=== PATIENT | female | born 1965 | race Caucasian/White ===

== ENCOUNTER → 2017-01-27 | Outpatient (CLI) | payer MEDICARE, MEDICAID | LOC: WI 06:52 | PROVIDERS: ATTEND Internal Medicine | DX: Z12.31 Encounter for screening mammogram for malignant neoplasm of breast (principal) | CPT/HCPCS: 77067; G0202 ==

== ENCOUNTER 2017-05-10 16:26 | Inpatient (IN) | payer MEDICARE, MEDICAID ==
[2017-05-10] MEDS ORDERED: DEXTROSE 50%-WATER SYRINGE 12.5 GM/25 ML DOSE IV PRN (17:20)
[2017-05-10] MEDS ORDERED: DEXTROSE 40% GEL 15 GM TUBE X 2 PO PRN (17:20)
[2017-05-10] MEDS ORDERED: DEXTROSE 40% GEL 15 GM TUBE PO PRN ×3 (17:20→21:14)
[2017-05-10] MEDS ORDERED: INSULIN LISPRO 100 UNIT/ML 3 ML VIAL SUBCUT PRN ×2 (17:20→21:14)
[2017-05-10] MEDS ORDERED: GLUCAGON,HUMAN RECOMB 1 MG INJ IM PRN ×2 (17:20→21:14)
[2017-05-10] MEDS ORDERED: DEXTROSE 50%-WATER SYRINGE 25 GM/50 ML DOSE IV PRN (17:20)
[2017-05-10] MEDS ORDERED: ENOXAPARIN SODIUM INJ 40 MG/0.4 ML DISP.SYRIN SUBCUT ONE (17:30)
[2017-05-10 17:32] LABS: ABSOLUTE BASOPHILS # (AUTO) 0.1 10^3/uL (0.0-0.2); ABSOLUTE EOSINOPHILS # (AUTO) 2.1 10^3/uL (0.0-0.6); ABSOLUTE LYMPHOCYTES (AUTO) 1.2 10^3/uL (0.5-4.7); ABSOLUTE MONOCYTES (AUTO) 0.7 10^3/uL (0.1-1.4); ABSOLUTE NEUT (AUTO) 7.1 10^3/uL (1.7-8.2); BASOPHILS % (AUTO) 0.7 % (0-2); EOSINOPHILS % (AUTO) 18.6 % (0-6); HEMATOCRIT 39.4 % (36.0-47.0); HEMOGLOBIN 13.1 g/dL (12.0-15.5); HGB HCT DIFFERENCE -0.1; LYMPHOCYTES % (AUTO) 10.8 % (13-45); MEAN CORPUSCULAR HEMOGLOBIN 29.2 pg (27.0-33.4); MEAN CORPUSCULAR HGB CONC 33.1 g/dL (32.0-36.0); MEAN CORPUSCULAR VOLUME 88 fl (80-97); MONOCYTES % (AUTO) 6.2 % (3-13); RED BLOOD COUNT 4.48 10^6/uL (3.72-5.28); RED CELL DISTRIBUTION WIDTH 15.7 % (11.5-14.0); SEGMENTED NEUTROPHILS % (AUTO) 63.7 % (42-78); WHITE BLOOD COUNT 11.2 10^3/uL (4.0-10.5)
[2017-05-10 17:58] LABS: ALANINE AMINOTRANSFERASE 36 U/L (9-52); ALBUMIN 3.8 g/dL (3.5-5.0); ALKALINE PHOSPHATASE 146 U/L (38-126); ANION GAP 11 (5-19); ASPARTATE AMINO TRANSFERASE 20 U/L (14-36); BILIRUBIN,DIRECT 0.3 mg/dL (0.0-0.4); BILIRUBIN,TOTAL 0.5 mg/dL (0.2-1.3); BLOOD UREA NITROGEN 17 mg/dL (7-20); CARBON DIOXIDE 25 mmol/L (22-30); CHLORIDE 103 mmol/L (98-107); CREATINE KINASE 61 U/L (30-135); CREATININE RESULT 0.63 mg/dL (0.52-1.25); GLUCOSE 92 mg/dL (75-110); POTASSIUM 4.4 mmol/L (3.6-5.0); SODIUM 138.9 mmol/L (137-145); TOTAL PROTEIN 6.9 g/dL (6.3-8.2)
[2017-05-10 18:10] LABS: CREATINE KINASE MB 3.38 ng/mL (<4.55)
[2017-05-10 18:11] LABS: TROPONIN I < 0.012 ng/mL
--- NOTE | 2017-05-10 18:15 | RADIOLOGY REPORT (SQ) ---
EXAM DESCRIPTION: CHEST SINGLE VIEW COMPLETED DATE/TIME: 05/10/2017 6:04 pm REASON FOR STUDY: chest pain COMPARISON: None. EXAM PARAMETERS: NUMBER OF VIEWS: One view. TECHNIQUE: Single frontal radiographic view of the chest acquired. RADIATION DOSE: NA LIMITATIONS: None. FINDINGS: LUNGS AND PLEURA: No acute opacities, masses or pneumothorax. No pleural effusion. MEDIASTINUM AND HILAR STRUCTURES: No masses. Contour normal. HEART AND VASCULAR STRUCTURES: Heart normal in size. Normal vasculature. BONES: No acute findings. HARDWARE: None in the chest. OTHER: No other significant finding. IMPRESSION: NO ACUTE RADIOGRAPHIC FINDING IN THE CHEST. TECHNICAL DOCUMENTATION: JOB ID: [id number]
[2017-05-10 18:48] LABS: ARTERIAL BLOOD BASE EXCESS 1.8 mmol/L; ARTERIAL BLOOD O2 SATURATION 61.9 % (94-98)
[2017-05-10 21:04] LABS: APPEARANCE,URINE SLIGHTLY-CLOUDY; BILIRUBIN,URINE NEGATIVE (NEGATIVE); GLUCOSE, URINE NEGATIVE (NEGATIVE); KETONES,URINE NEGATIVE (NEGATIVE); LEUKOCYTE ESTERASE,URINE LARGE (NEGATIVE); NITRITE,URINE NEGATIVE (NEGATIVE); PROTEIN,URINE NEGATIVE (NEGATIVE); URINE SPECIFIC GRAVITY 1.027; UROBILINOGEN,URINE NEGATIVE mg/dL (<2.0)
[2017-05-10] MEDS: IPRATROPIUM/ALBUTEROL 0.5-2.5 MG/3 ML AMPUL NEB SCH (21:05)
[2017-05-10] MEDS ORDERED: DEXTROSE 50%-WATER 25 GM/50 ML DISP.SYRIN IV PRN ×2 (21:14)
[2017-05-10] MEDS: LEVOFLOXACIN 750 MG/D5W RTU 750 MG/150 ML RTUPB IV SCH (23:10)
[2017-05-11 01:15] LABS: ARTERIAL BLOOD BASE EXCESS 2.8 mmol/L; ARTERIAL BLOOD O2 SATURATION 95.9 % (94-98)
[2017-05-11 01:50] LABS: CREATINE KINASE MB 2.68 ng/mL (<4.55)
[2017-05-11 01:57] LABS: TROPONIN I < 0.012 ng/mL
[2017-05-11] MEDS: IPRATROPIUM/ALBUTEROL 0.5-2.5 MG/3 ML AMPUL NEB SCH ×4 (02:33→20:47)
--- NOTE | 2017-05-11 08:47 | RADIOLOGY REPORT (SQ) ---
EXAM DESCRIPTION: CT CHEST WITHOUT COMPLETED DATE/TIME: 05/11/2017 7:59 am REASON FOR STUDY: copd COMPARISON: 11/29/2007, 12/01/2010, 05/15/2013 TECHNIQUE: CT scan performed of the chest without intravenous contrast. Images reviewed with lung, soft tissue and bone windows. Reconstructed coronal and sagittal MPR images reviewed. All images st ored on PACS. All CT scanners at this facility use dose modulation, iterative reconstruction, and/or weight based d osing when appropriate to reduce radiation dose to as low as reasonably achievable (ALARA). [facility]: Dose Right [facility]: CareDose [facility]: Dose Right [facility]: Teradose 4D [facility]: PowerPot RADIATION DOSE: Up-to-date CT equipment and radiation dose reduction techniques were employed. CTDIv ol: 14.3 mGy. DLP: 564 mGy-cm. mGy. LIMITATIONS: No technical limitations. FINDINGS: LUNGS AND PLEURA: No pulmonary nodules. No pleural effusion. No acute infiltrates. There is minimal scarring in the medial edge of the right middle lobe and lingula, similar compared t o studies dating back to 2007. No pneumothorax HILAR AND MEDIASTINAL STRUCTURES: No identified masses or abnormal nodes. No obvious aneurysm. HEART AND VASCULAR STRUCTURES: No aneurysm. No pericardial effusion. Very heavy [place] coronary art laya calcifications UPPER ABDOMEN: Jimena along the greater curvature of the stomach from gastric sleeve procedure. THYROID AND OTHER SOFT TISSUES: No masses. No adenopathy. BONES: No significant finding. HARDWARE: None in the chest. OTHER: No other significant findings. IMPRESSION: Calcified coronary arteries. No lung parenchymal infiltrates. No worrisome nodules. TECHNICAL DOCUMENTATION: JOB ID: [id number] Quality ID # [id number]: Final reports with documentation of one or more dose reduction techniques (e.g., Au tomated exposure control, adjustment of the mA and/or kV according to patient size, use of iterative reconstruction technique) 2010 [email or web address]- All Rights Reserved
[2017-05-11 10:15] LABS: CREATINE KINASE MB 2.57 ng/mL (<4.55)
[2017-05-11 10:20] LABS: TROPONIN I < 0.012 ng/mL
[2017-05-11] MEDS: ENOXAPARIN SODIUM INJ 40 MG/0.4 ML DISP.SYRIN SUBCUT SCH (10:49)
--- NOTE | 2017-05-11 11:51 | EKG REPORT ---
SEVERITY:- BORDERLINE ECG - SINUS RHYTHM BORDERLINE T ABNORMALITIES, ANTERIOR LEADS : Confirmed by: Paty Guevara 11-May-2017 11:50:40
--- NOTE | 2017-05-11 14:53 | PDOC H&P ---
History of Present Illness Admission Date/PCP: 05/10/17 16:26 CHEO PETERSEN MD History of Present Illness: STAR ROSAS is a 51 year old female, she has a history of chronic obstructive pulmonary disease, ischemic heart disease, old myocardial. infarction, she came to the office for the evaluation of respiratory symptoms, cough, shortness of breath and wheezing. The oxygen saturation on pulse oximetry on FiO2 of 3 L was 94%. Patient was admitted directly from the office into the hospital because of concern for pneumonia, acute respiratory failure due to COPD exacerbation. The arterial blood gas that was done on FiO2 of 28% showed pH 7.37, PCO2 33.7 PCO2 50.8 bicarbonate 29, this is consistent with a mixed acid-base disorder. The initial chest x-ray that was done did not show any acute infiltrate to suggest pneumonia. She has a history of ischemic cardiomyopathy, she also complained of a chest pain, she described the pain as a pressure sensation. The chest pain is not provoked by exertion and is not relieved by rest Past Medical History Cardiac Medical History: Reports: Coronary Artery Disease, Myocardial Infarction - x2, Hyperlipidema, Hypertension Pulmonary Medical History: Reports: Asthma, Chronic Obstructive Pulmonary Disease (COPD) Endocrine Medical History: Reports: Diabetes Mellitus Type 2 Psychiatric Medical History: Reports: Depression Past Surgical History Past Surgical History: Reports: Cardiac Catheterization, Orthopedic Surgery - right knee, Tubal Ligation Social History Smoking Status: Former Smoker Number of Years Smokin Last Time Smoked: 2009 Frequency of Alcohol Use: None Hx Recreational Drug Use: No Drugs: None Hx Prescription Drug Abuse: No Family History Family History: Reviewed & Not Pertinent Parental Family History Reviewed: Yes Children Family History Reviewed: Yes Sibling(s) Family History Reviewed.: Yes Medication/Allergy Home Medications: Albuterol Sulfate [Proair HFA] 1 puff PO DAILY 08/17/13 Budesonide/Formoterol Fumarate [Symbicort HFA 160-4.5 mcg Inhaler 6 gm] 1 - 2 puff PO PRN PRN 08/17/13 Cyclobenzaprine HCl 10 mg PO Q8H 08/17/13 Diltiazem HCl [Cardizem Cd 120 mg Capsule] 120 mg PO DAILY 08/17/13 Duloxetine HCl [Cymbalta] 60 mg PO DAILY 08/17/13 Hydrocodone Bit/Acetaminophen [Hydrocodon-Acetaminophen 5-500] 1 tab PO PRN PRN 08/17/13 Isosorbide Mononitrate [Isosorbide Mononitrate ER] 30 mg PO DAILY 08/17/13 Levalbuterol Tartrate [Xopenex Hfa] 15 gm IH Q4HP PRN #0 hfa.aer.ad 08/17/13 Levofloxacin [Levaquin 500 mg Tablet] 500 mg PO DAILY #7 tablet 08/17/13 Losartan Potassium 25 mg PO DAILY 08/17/13 Metoprolol Tartrate [Lopressor 100 mg Tablet] 100 mg PO BID 08/17/13 Pravastatin Sodium [Pravachol] 40 mg PO DAILY 08/17/13 Prednisone [Deltasone 20 mg Tablet] 60 mg PO DAILY #12 tablet 08/17/13 Ranolazine [Ranexa] 500 mg PO BID 08/17/13 Tiotropium [place] [Spiriva Handihaler 18 mcg/dose (30 Dose)] 18 mcg PO DAILY Zolpidem Tartrate 10 mg PO QHS 08/17/13 Allergies/Adverse Reactions: Penicillins Allergy (Verified 08/17/13 21:34) Review of Systems Constitutional: PRESENT: fatigue Eyes: ABSENT: visual disturbances Ears: ABSENT: hearing changes Cardiovascular: PRESENT: chest pain, dyspnea on exertion Respiratory: PRESENT: cough, dyspnea Gastrointestinal: ABSENT: abdominal pain, constipation, diarrhea, hematemesis, hematochezia, nausea, vomiting Genitourinary: ABSENT: dysuria, hematuria Musculoskeletal: ABSENT: joint swelling Integumentary: ABSENT: rash, wounds Neurological: ABSENT: abnormal gait, abnormal speech, confusion, dizziness, focal weakness, syncope Psychiatric: ABSENT: anxiety, depression, homidical ideation, suicidal ideation Endocrine: ABSENT: cold intolerance, heat intolerance, menstrual abnormalities, polydipsia, polyuria Hematologic/Lymphatic: ABSENT: easy bleeding, easy bruising, lymphadenopathy Physical Exam Vital Signs: Temp Pulse Resp BP Pulse Ox 97.8 F 105 H 18 108/77 96 05/11/17 11:36 05/11/17 13:55 05/11/17 13:55 05/11/17 11:36 05/11/17 13:55 Intake & Output 05/10/17 05/11/17 05/12/17 06:59 06:59 06:59 Intake Total 150 300 Output Total 300 Balance 150 0 Weight 99.2 kg 99.2 kg General appearance: PRESENT: mild distress Head exam: PRESENT: atraumatic, normocephalic Eye exam: PRESENT: conjunctiva pink, EOMI, PERRLA Ear exam: PRESENT: normal external ear exam Mouth exam: PRESENT: moist, tongue midline Neck exam: PRESENT: full ROM Respiratory exam: PRESENT: wheezes Cardiovascular exam: PRESENT: RRR, +S1, +S2 Pulses: PRESENT: normal dorsalis pedis pul, +2 pedal pulses bilateral Vascular exam: PRESENT: normal capillary refill GI/Abdominal exam: PRESENT: normal bowel sounds, soft Rectal exam: PRESENT: deferred Neurological exam: PRESENT: alert, awake, oriented to person, oriented to place , oriented to time, oriented to situation, CN II-XII grossly intact Psychiatric exam: PRESENT: appropriate affect, normal mood Skin exam: PRESENT: dry, intact, warm Results Laboratory Results: 05/10/17 17:25 05/10/17 17:25 05/10/17 05/10/17 05/10/17 17:25 17:25 18:35 WBC 11.2 H RBC 4.48 Hgb 13.1 Hct 39.4 MCV 88 MCH 29.2 MCHC 33.1 RDW 15.7 H Plt Count 261 Seg Neutrophils % 63.7 Lymphocytes % 10.8 L Monocytes % 6.2 Eosinophils % 18.6 H Basophils % 0.7 Absolute Neutrophils 7.1 Absolute Lymphocytes 1.2 Absolute Monocytes 0.7 Absolute Eosinophils 2.1 H Absolute Basophils 0.1 Carbonic Acid 1.77 H HCO3/H2CO3 Ratio 16:1 ABG pH 7.32 L ABG pCO2 58.9 H ABG pO2 35.6 L* ABG HCO3 29.3 H ABG O2 Saturation 61.9 L ABG Base Excess 1.8 FiO2 28% Sodium 138.9 Potassium 4.4 Chloride 103 Carbon Dioxide 25 Anion Gap 11 BUN 17 Creatinine 0.63 Est GFR ( Amer) > 60 Est GFR (Non-Af Amer) > 60 Glucose 92 Calcium 9.0 Total Bilirubin 0.5 AST 20 ALT 36 Alkaline Phosphatase 146 H Total Protein 6.9 Albumin 3.8 Urine Color Urine Appearance Urine pH Ur Specific [place] Urine Protein Urine Glucose (UA) Urine Ketones Urine Blood Urine Nitrite Ur Leukocyte Esterase Urine WBC (Auto) Urine RBC (Auto) 0805/10/17 05/11/17 20:33 23:48 01:08 WBC RBC Hgb Hct MCV MCH MCHC RDW Plt Count Seg Neutrophils % Lymphocytes % Monocytes % Eosinophils % Basophils % Absolute Neutrophils Absolute Lymphocytes Absolute Monocytes Absolute Eosinophils Absolute Basophils Carbonic Acid Cancelled 1.53 H HCO3/H2CO3 Ratio Cancelled 18:1 ABG pH Cancelled 7.37 ABG pCO2 Cancelled 50.8 H ABG pO2 Cancelled 83.7 ABG HCO3 Cancelled 29.0 H ABG O2 Saturation Cancelled 95.9 ABG Base Excess Cancelled 2.8 FiO2 Cancelled 28% Sodium Potassium Chloride Carbon Dioxide Anion Gap BUN Creatinine Est GFR ( Amer) Est GFR (Non-Af Amer) Glucose Calcium Total Bilirubin AST ALT Alkaline Phosphatase Total Protein Albumin Urine Color YELLOW Urine Appearance SLIGHTLY-CLOUDY Urine pH 5.0 Ur Specific [place] 1.027 Urine Protein NEGATIVE Urine Glucose (UA) NEGATIVE Urine Ketones NEGATIVE Urine Blood NEGATIVE Urine Nitrite NEGATIVE Ur Leukocyte Esterase LARGE H Urine WBC (Auto) 13 Urine RBC (Auto) 4 05/10/17 05/10/17 05/11/17 17:25 17:25 01:10 Creatine Kinase 61 50 CK-MB (CK-2) 3.38 Troponin I < 0.012 05/11/17 05/11/17 05/11/17 01:10 09:31 09:31 Creatine Kinase 49 CK-MB (CK-2) 2.68 2.57 Troponin I < 0.012 < 0.012 Impressions: Chest X-Ray 05/10/17 00:00 IMPRESSION: NO ACUTE RADIOGRAPHIC FINDING IN THE CHEST. Chest CT 05/11/17 00:00 IMPRESSION: Calcified coronary arteries. No lung parenchymal infiltrates. No worrisome nodules. Assessment & Plan - Diagnosis (1) Acute exacerbation of chronic obstructive pulmonary disease (COPD) Is this a current diagnosis for this admission?: Yes Plan: She has acute exacerbation of chronic obstructive lung disease, she is started on intravenous Levaquin, I will hold off Solu-Medrol at this point because she has a history of diabetes mellitus, she has a history of old myocardial infarction, if in 24 hours myocardial infarction is rule out then at that time Solu-Medrol will be initiated. She has complaint of chest pain that is suspicious for ischemic chest pain because is pressure-like in character and Solu-Medrol will be detrimental if used in the setting of acute myocardial infarction (2) Type 2 diabetes mellitus Qualifiers: Diabetes mellitus complication status: with neurologic complications Diabetes mellitus complication detail: with polyneuropathy Diabetes mellitus middle or intermediate school principal insulin use: without middle or intermediate school principal use Qualified Code(s): E11.42 - Type 2 diabetes mellitus with diabetic polyneuropathy Is this a current diagnosis for this admission?: Yes (3) Old myocardial infarction Is this a current diagnosis for this admission?: Yes (4) Chest pain Qualifiers: Chest pain type: unspecified Qualified Code(s): R07.9 - Chest pain, unspecified Is this a current diagnosis for this admission?: Yes
--- NOTE | 2017-05-11 14:59 | PDOC PROGRESS REPORT ---
Subjective Progress Note for:: 05/11/17 Subjective:: Patient was admitted yesterday for evaluation and management of acute COPD exacerbation, yesterday she was not treated with intravenous Solu-Medrol because she also had chest pressure that was suspicious for ischemic chest pain , she has a history of old myocardial infarction, status post insertion of coronary artery stents, 3 sets of cardiac enzymes were negative for acute myocardial infarction, it is not safe to administer intravenous Solu-Medrol in the setting of acute myocardial infarction. Since acute [place] is ruled out one can safely administer intravenous Solu-Medrol. CT chest was done today it was negative for any acute infiltrates suggesting that the symptoms are more likely due to acute COPD exacerbation. Physical Exam Vital Signs: Temp Pulse Resp BP Pulse Ox 97.8 F 105 H 18 108/77 96 05/11/17 11:36 05/11/17 13:55 05/11/17 13:55 05/11/17 11:36 05/11/17 13:55 Intake & Output 05/10/17 05/11/17 05/12/17 06:59 06:59 06:59 Intake Total 150 300 Output Total 300 Balance 150 0 Weight 99.2 kg 99.2 kg General appearance: PRESENT: no acute distress Eye exam: PRESENT: PERRLA Respiratory exam: PRESENT: wheezes Cardiovascular exam: PRESENT: +S1, +S2 GI/Abdominal exam: PRESENT: soft Neurological exam: PRESENT: alert, CN II-XII grossly intact Results Laboratory Results: 05/10/17 17:25 05/10/17 17:25 05/10/17 05/10/17 05/10/17 17:25 17:25 18:35 WBC 11.2 H RBC 4.48 Hgb 13.1 Hct 39.4 MCV 88 MCH 29.2 MCHC 33.1 RDW 15.7 H Plt Count 261 Seg Neutrophils % 63.7 Lymphocytes % 10.8 L Monocytes % 6.2 Eosinophils % 18.6 H Basophils % 0.7 Absolute Neutrophils 7.1 Absolute Lymphocytes 1.2 Absolute Monocytes 0.7 Absolute Eosinophils 2.1 H Absolute Basophils 0.1 Carbonic Acid 1.77 H HCO3/H2CO3 Ratio 16:1 ABG pH 7.32 L ABG pCO2 58.9 H ABG pO2 35.6 L* ABG HCO3 29.3 H ABG O2 Saturation 61.9 L ABG Base Excess 1.8 FiO2 28% Sodium 138.9 Potassium 4.4 Chloride 103 Carbon Dioxide 25 Anion Gap 11 BUN 17 Creatinine 0.63 Est GFR ( Amer) > 60 Est GFR (Non-Af Amer) > 60 Glucose 92 Calcium 9.0 Total Bilirubin 0.5 AST 20 ALT 36 Alkaline Phosphatase 146 H Total Protein 6.9 Albumin 3.8 Urine Color Urine Appearance Urine pH Ur Specific [place] Urine Protein Urine Glucose (UA) Urine Ketones Urine Blood Urine Nitrite Ur Leukocyte Esterase Urine WBC (Auto) Urine RBC (Auto) 05/10/17 05/10/17 05/11/17 20:33 23:48 01:08 WBC RBC Hgb Hct MCV MCH MCHC RDW Plt Count Seg Neutrophils % Lymphocytes % Monocytes % Eosinophils % Basophils % Absolute Neutrophils Absolute Lymphocytes Absolute Monocytes Absolute Eosinophils Absolute Basophils Carbonic Acid Cancelled 1.53 H HCO3/H2CO3 Ratio Cancelled 18:1 ABG pH Cancelled 7.37 ABG pCO2 Cancelled 50.8 H ABG pO2 Cancelled 83.7 ABG HCO3 Cancelled 29.0 H ABG O2 Saturation Cancelled 95.9 ABG Base Excess Cancelled 2.8 FiO2 Cancelled 28% Sodium Potassium Chloride Carbon Dioxide Anion Gap BUN Creatinine Est GFR ( Amer) Est GFR (Non-Af Amer) Glucose Calcium Total Bilirubin AST ALT Alkaline Phosphatase Total Protein Albumin Urine Color YELLOW Urine Appearance SLIGHTLY-CLOUDY Urine pH 5.0 Ur Specific [place] 1.027 Urine Protein NEGATIVE Urine Glucose (UA) NEGATIVE Urine Ketones NEGATIVE Urine Blood NEGATIVE Urine Nitrite NEGATIVE Ur Leukocyte Esterase LARGE H Urine WBC (Auto) 13 Urine RBC (Auto) 4 05/10/17 05/10/17 05/11/17 17:25 17:25 01:10 Creatine Kinase 61 50 CK-MB (CK-2) 3.38 Troponin I < 0.012 05/11/17 05/11/17 05/11/17 01:10 09:31 09:31 Creatine Kinase 49 CK-MB (CK-2) 2.68 2.57 Troponin I < 0.012 < 0.012 Impressions: Chest X-Ray 05/10/17 00:00 IMPRESSION: NO ACUTE RADIOGRAPHIC FINDING IN THE CHEST. Chest CT 05/11/17 00:00 IMPRESSION: Calcified coronary arteries. No lung parenchymal infiltrates. No worrisome nodules. Assessment & Plan - Diagnosis (1) Acute exacerbation of chronic obstructive pulmonary disease (COPD) Is this a current diagnosis for this admission?: Yes (2) Type 2 diabetes mellitus Qualifiers: Diabetes mellitus complication status: with neurologic complications Diabetes mellitus complication detail: with polyneuropathy Diabetes mellitus long-term insulin use: without termite control service representative use Qualified Code(s): E11.42 - Type 2 diabetes mellitus with diabetic polyneuropathy Is this a current diagnosis for this admission?: Yes (3) Old myocardial infarction Is this a current diagnosis for this admission?: Yes (4) Chest pain Qualifiers: Chest pain type: unspecified Qualified Code(s): R07.9 - Chest pain, unspecified Is this a current diagnosis for this admission?: Yes - Plan Summary Plan Summary: She will be started on IV Solu-Medrol, she will continue IV antibiotic and other treatment
[2017-05-11] MEDS ORDERED: METHYLPREDNISOLONE INJ 125 MG/2 ML SDV IV ONE (15:00)
[2017-05-11 17:44] LABS: HEMATOCRIT 40.2 % (36.0-47.0); HEMOGLOBIN 13.3 g/dL (12.0-15.5); HGB HCT DIFFERENCE -0.3; MEAN CORPUSCULAR HEMOGLOBIN 29.6 pg (27.0-33.4); MEAN CORPUSCULAR VOLUME 90 fl (80-97); RED BLOOD COUNT 4.49 10^6/uL (3.72-5.28); WHITE BLOOD COUNT 8.8 10^3/uL (4.0-10.5)
[2017-05-11] MEDS ORDERED: LOSARTAN POTASSIUM 25 MG TABLET PO SCH (17:45)
[2017-05-11] MEDS ORDERED: BUSPIRONE HCL 10 MG TABLET PO SCH (17:45)
[2017-05-11] MEDS ORDERED: FAMOTIDINE 20 MG TABLET PO SCH (17:45)
[2017-05-11] MEDS ORDERED: (PENDING PHARMACY ID) (Vortioxetine Hydrobromide [Trintellix] 10 MG) PO SCH (17:45)
[2017-05-11] MEDS ORDERED: METOPROLOL TARTRATE 100 MG TABLET PO SCH (17:45)
[2017-05-11] MEDS ORDERED: ATORVASTATIN CALCIUM 40 MG TABLET PO SCH (17:45)
[2017-05-11] MEDS ORDERED: TIOTROPIUM BROMIDE DPI 5 CAP/KIT (18 MCG/CAP) IH SCH (17:45)
[2017-05-11] MEDS ORDERED: LEVOTHYROXINE SODIUM 0.025 MG TABLET PO SCH (17:45)
[2017-05-11] MEDS ORDERED: CLOPIDOGREL BISULFATE 75 MG TABLET PO SCH (17:45)
[2017-05-11] MEDS ORDERED: (PENDING PHARMACY ID) (Tramadol Hcl/Acetaminophen [Tramadol-Acetaminophn 37.5-325] 1 EACH) PO SCH ×2 (18:00→20:00)
[2017-05-11] MEDS: LEVOFLOXACIN 750 MG/D5W RTU 750 MG/150 ML RTUPB IV SCH (18:38)
--- NOTE | 2017-05-11 19:13 | XCELERA REPORT ---
[address] [address] Transthoracic Echocardiogram Report Name: STAR ROSAS Age: 51 yrs Gender: Female : 1965 Patient Status: Inpatient Patient Location: [address] [place] [address] Study Date: 05/11/2017 04:41 PM Height: 63 in Weight: 218 lb BSA: 2.0 m2 Procedure: A complete two-dimensional transthoracic echocardiogram was performed (2D, M-mode, spectral and color flow Doppler). The study was technically adequate with some images being suboptimal in quality. Reason For Study: CAD Ordering Physician: CHEO PETERSEN Performed By: Leeanne Roman Interpretation Summary The left ventricular ejection fraction is normal. Doppler measurements suggest impaired left ventricular relaxation, which is associated with grade I/IV or mild diastolic dysfunction Wall motion cannot be accurately commented on, but no definite regional wall motion abnormalities noted. The right ventricular systolic function is normal. The right atrium is normal in size The left atrium is borderline dilated. There is a trace amount of mitral regurgitation There is no mitral valve stenosis. No aortic regurgitation is present. There is no aortic valve stenosis There is a trace or physiologic amount of tricuspid regurgitation Tricuspid regurgitation jet envelope not well defined to measure RV systolic pressure accurately. The aortic root is not well visualized but is probably normal size. The inferior vena cava appeared normal and decreased > 50% with respiration (RAP 5-10 mmHg) There is no pericardial effusion. MMode/2D Measurements & Calculations RVDd: 2.7 cm LVIDd: 4.0 cm FS: 34.8 % Ao root diam: 2.9 cm IVSd: 1.0 cm LVIDs: 2.6 cm EDV(Teich): 68.2 ml LVPWd: 0.99 cm ESV(Teich): 24.1 ml Ao root area: 6.6 cm2 EF(Teich): 64.6 % Doppler Measurements & Calculations MV E max susy: MV dec slope: Ao V2 max: LV V1 max P.2 cm/sec 156.6 cm/sec 2.9 mmHg MV A max susy: 409.8 cm/sec2 Ao max PG: LV V1 max: 75.9 cm/sec MV dec time: 9.8 mmHg 84.9 cm/sec MV E/A: 0.86 0.16 sec PA V2 max: TR max susy: 86.3 cm/sec 134.5 cm/sec PA max PG: TR max P.2 mmHg 3.0 mmHg Left Ventricle There is borderline concentric left ventricular hypertrophy. The left ventricle is grossly normal size. The left ventricular ejection fraction is normal. Doppler measurements suggest impaired left ventricular relaxation, which is associated with grade I/IV or mild diastolic dysfunction. Wall motion cannot be accurately commented on, but no definite regional wall motion abnormalities noted. Right Ventricle The right ventricle is grossly normal size. There is normal right ventricular wall thickness. The right ventricular systolic function is normal. Atria The right atrium is normal in size. The left atrium is borderline dilated. Interarterial septum not well visualized and not well dopplered. Cannot comment on ASD/PFO presence. Mitral Valve The mitral valve is grossly normal. There is no mitral valve stenosis. There is a trace amount of mitral regurgitation. Aortic Valve The aortic valve is mildly calcified. There is no aortic valve stenosis. No aortic regurgitation is present. Tricuspid Valve The tricuspid valve is not well visualized secondary to technical limitations. There is no tricuspid stenosis. There is a trace or physiologic amount of tricuspid regurgitation. Tricuspid regurgitation jet envelope not well defined to measure RV systolic pressure accurately. Pulmonic Valve The pulmonic valve is not well visualized. Great Vessels The aortic root is not well visualized but is probably normal size. The inferior vena cava appeared normal and decreased > 50% with respiration (RAP 5-10 mmHg). Effusions There is no pericardial effusion. : CHEO PETERSEN > Paty Guevara
[2017-05-11] MEDS ORDERED: ALBUTEROL SULFATE HFA (90 MCG/PUFF) 200 PUFF/8.5 GM MDI IH PRN (19:45)
[2017-05-11] MEDS ORDERED: ATORVASTATIN CALCIUM 40 MG TABLET PO ONE (20:15)
[2017-05-11] MEDS ORDERED: CLOPIDOGREL BISULFATE 75 MG TABLET PO ONE (20:15)
[2017-05-11] MEDS ORDERED: LEVOTHYROXINE SODIUM 0.025 MG TABLET PO ONE (20:15)
[2017-05-11] MEDS ORDERED: FAMOTIDINE 20 MG TABLET PO ONE (20:15)
[2017-05-11] MEDS ORDERED: TIOTROPIUM BROMIDE DPI 5 CAP/KIT (18 MCG/CAP) IH ONE (20:30)
[2017-05-11] MEDS ORDERED: METOPROLOL TARTRATE 100 MG TABLET PO ONE (20:30)
[2017-05-11] MEDS ORDERED: LOSARTAN POTASSIUM 25 MG TABLET PO ONE (20:30)
[2017-05-11] MEDS: TRAMADOL HCL 50 MG TABLET PO PRN (20:57)
[2017-05-11] MEDS: METFORMIN HCL 500 MG TABLET PO SCH (20:59)
[2017-05-11] MEDS: BUSPIRONE HCL 10 MG TABLET PO SCH (21:35)
[2017-05-11] MEDS: METHYLPREDNISOLONE INJ 125 MG/2 ML SDV IV SCH (21:36)
[2017-05-12] MEDS: IPRATROPIUM/ALBUTEROL 0.5-2.5 MG/3 ML AMPUL NEB SCH ×4 (02:37→19:28)
[2017-05-12] MEDS: METHYLPREDNISOLONE INJ 125 MG/2 ML SDV IV SCH ×3 (05:39→22:14)
[2017-05-12] MEDS: LEVOTHYROXINE SODIUM 0.025 MG TABLET PO SCH (07:56)
[2017-05-12] MEDS: ENOXAPARIN SODIUM INJ 40 MG/0.4 ML DISP.SYRIN SUBCUT SCH (10:39)
[2017-05-12] MEDS: LOSARTAN POTASSIUM 25 MG TABLET PO SCH (10:40)
[2017-05-12] MEDS: BUSPIRONE HCL 10 MG TABLET PO SCH ×2 (10:40→22:14)
[2017-05-12] MEDS: TIOTROPIUM BROMIDE DPI 5 CAP/KIT (18 MCG/CAP) IH SCH (10:40)
[2017-05-12] MEDS: CLOPIDOGREL BISULFATE 75 MG TABLET PO SCH (10:40)
[2017-05-12] MEDS: FAMOTIDINE 20 MG TABLET PO SCH (10:40)
[2017-05-12] MEDS: METFORMIN HCL 500 MG TABLET PO SCH ×2 (10:40→22:14)
[2017-05-12] MEDS: TRAMADOL HCL 50 MG TABLET PO PRN ×2 (10:52→22:15)
[2017-05-12] MEDS: METOPROLOL TARTRATE 100 MG TABLET PO SCH (10:53)
--- NOTE | 2017-05-12 12:32 | Physician Advisory Note ---
Physician Advisor ProgressNote .: Pursuant to the plan for [facility], I have reviewed the medical record for this patient. Physician Advisor Statement: Please consider documentin. "Acute Hypoxemic Respiratory Failure" (Pt w/pO2 35.6 on ABG, O2 sat 93% on 2L O2 [P/F ratio of 243], w/tachycardia , pt CABRAL & unable to lie flat initially, with wheezing, cough, coarseness, thick green sputum) 2. "Chronic Hypercarbic Respiratory Failure" 3. "Chest Pain, likely due to " Thanks! CK
[2017-05-12 17:15] LABS: ABSOLUTE MONOCYTES (AUTO) 0.2 10^3/uL (0.1-1.4); ABSOLUTE NEUT (AUTO) 10.7 10^3/uL (1.7-8.2); BASOPHILS % (AUTO) 0.2 % (0-2); HEMATOCRIT 38.9 % (36.0-47.0); HEMOGLOBIN 13.1 g/dL (12.0-15.5); HGB HCT DIFFERENCE 0.4; LYMPHOCYTES % (AUTO) 8.6 % (13-45); MEAN CORPUSCULAR HEMOGLOBIN 29.5 pg (27.0-33.4); MEAN CORPUSCULAR HGB CONC 33.8 g/dL (32.0-36.0); MEAN CORPUSCULAR VOLUME 87 fl (80-97); MONOCYTES % (AUTO) 1.7 % (3-13); RED BLOOD COUNT 4.45 10^6/uL (3.72-5.28); RED CELL DISTRIBUTION WIDTH 15.9 % (11.5-14.0); SEGMENTED NEUTROPHILS % (AUTO) 89.5 % (42-78); WHITE BLOOD COUNT 11.9 10^3/uL (4.0-10.5)
[2017-05-12 17:32] LABS: ALANINE AMINOTRANSFERASE 27 U/L (9-52); ALBUMIN 4.2 g/dL (3.5-5.0); ALKALINE PHOSPHATASE 140 U/L (38-126); ANION GAP 15 (5-19); ASPARTATE AMINO TRANSFERASE 21 U/L (14-36); BILIRUBIN,DIRECT 0.4 mg/dL (0.0-0.4); BILIRUBIN,TOTAL 0.4 mg/dL (0.2-1.3); BLOOD UREA NITROGEN 21 mg/dL (7-20); CALCIUM 10.3 mg/dL (8.4-10.2); CARBON DIOXIDE 24 mmol/L (22-30); CHLORIDE 101 mmol/L (98-107); CREATININE RESULT 0.64 mg/dL (0.52-1.25); GLUCOSE 166 mg/dL (75-110); POTASSIUM 4.3 mmol/L (3.6-5.0); TOTAL PROTEIN 7.5 g/dL (6.3-8.2)
--- NOTE | 2017-05-12 19:22 | PDOC PROGRESS REPORT ---
Subjective Progress Note for:: 05/12/17 Subjective:: Patient was admitted for the evaluation and management of chest pressure, acute exacerbation of chronic obstructive pulmonary disease. She is presently on intravenous Solu-Medrol, intra-venous antibiotic, she complained of chest pressure with radiation to the left upper extremities, on admission she has similar chest pressure but cardiac infarction was eliminated with negative serial 3 sets of cardiac enzymes. She has a history of CAD, old myocardial infarction with insertion of stent in the coronary arteries, she will be scheduled for Cardiolite Lexiscan stress test in the morning. She will continue IV Solu-Medrol for acute COPD exacerbation she seems to be improving presently on the IV Solu-Medrol but she is not ready yet for discharge. She is not able to lay flat in bed, she has been sitting up in bed since admission the last 2 days. Physical Exam Vital Signs: Temp Pulse Resp BP Pulse Ox 97.7 F 117 H 21 H 116/70 95 05/12/17 15:10 05/12/17 15:10 05/12/17 15:10 05/12/17 15:10 05/12/17 15:10 Intake & Output 05/11/17 05/12/17 05/13/17 06:59 06:59 06:59 Intake Total 150 1608 582 Output Total 1800 400 Balance 150 -192 182 Weight 99.2 kg 94.1 kg General appearance: PRESENT: mild distress Eye exam: PRESENT: PERRLA Respiratory exam: PRESENT: wheezes Cardiovascular exam: PRESENT: +S1, +S2 GI/Abdominal exam: PRESENT: soft Neurological exam: PRESENT: alert, CN II-XII grossly intact Results Laboratory Results: 05/12/17 17:05 05/12/17 17:05 05/12/17 05/12/17 17:05 17:05 WBC 11.9 H RBC 4.45 Hgb 13.1 Hct 38.9 MCV 87 MCH 29.5 MCHC 33.8 RDW 15.9 H Plt Count 293 Seg Neutrophils % 89.5 H Lymphocytes % 8.6 L Monocytes % 1.7 L Eosinophils % 0.0 Basophils % 0.2 Absolute Neutrophils 10.7 H Absolute Lymphocytes 1.0 Absolute Monocytes 0.2 Absolute Eosinophils 0.0 Absolute Basophils 0.0 Sodium 140.0 Potassium 4.3 Chloride 101 Carbon Dioxide 24 Anion Gap 15 BUN 21 H Creatinine 0.64 Est GFR ( Amer) > 60 Est GFR (Non-Af Amer) > 60 Glucose 166 H Calcium 10.3 H Total Bilirubin 0.4 AST 21 ALT 27 Alkaline Phosphatase 140 H Total Protein 7.5 Albumin 4.2 05/10/17 05/10/17 05/11/17 17:25 17:25 01:10 Creatine Kinase 61 50 CK-MB (CK-2) 3.38 Troponin I < 0.012 05/11/17 05/11/17 05/11/17 01:10 09:31 09:31 Creatine Kinase 49 CK-MB (CK-2) 2.68 2.57 Troponin I < 0.012 < 0.012 Impressions: Chest X-Ray 05/10/17 00:00 IMPRESSION: NO ACUTE RADIOGRAPHIC FINDING IN THE CHEST. Chest CT 05/11/17 00:00 IMPRESSION: Calcified coronary arteries. No lung parenchymal infiltrates. No worrisome nodules. Assessment & Plan - Diagnosis (1) Acute exacerbation of chronic obstructive pulmonary disease (COPD) Is this a current diagnosis for this admission?: Yes (2) Type 2 diabetes mellitus Qualifiers: Diabetes mellitus complication status: with neurologic complications Diabetes mellitus complication detail: with polyneuropathy Diabetes mellitus longterm insulin use: without termination clerk use Qualified Code(s): E11.42 - Type 2 diabetes mellitus with diabetic polyneuropathy Is this a current diagnosis for this admission?: Yes (3) Old myocardial infarction Is this a current diagnosis for this admission?: Yes (4) Chest pain Qualifiers: Chest pain type: unspecified Qualified Code(s): R07.9 - Chest pain, unspecified Is this a current diagnosis for this admission?: Yes Plan: She has suspicious chest pressure, Cardiolite Lexiscan stress test is ordered for a.m.
[2017-05-12] MEDS ORDERED: ATORVASTATIN CALCIUM 40 MG TABLET PO SCH (22:00)
[2017-05-13] MEDS: IPRATROPIUM/ALBUTEROL 0.5-2.5 MG/3 ML AMPUL NEB SCH ×3 (02:29→13:31)
[2017-05-13] MEDS: METHYLPREDNISOLONE INJ 125 MG/2 ML SDV IV SCH ×2 (05:46→15:01)
[2017-05-13 06:21] LABS: ABSOLUTE LYMPHOCYTES (AUTO) 1.1 10^3/uL (0.5-4.7); ABSOLUTE MONOCYTES (AUTO) 0.3 10^3/uL (0.1-1.4); ABSOLUTE NEUT (AUTO) 13.4 10^3/uL (1.7-8.2); BASOPHILS % (AUTO) 0.1 % (0-2); EOSINOPHILS % (AUTO) 0.1 % (0-6); HEMATOCRIT 38.4 % (36.0-47.0); HEMOGLOBIN 12.5 g/dL (12.0-15.5); HGB HCT DIFFERENCE -0.9; LYMPHOCYTES % (AUTO) 7.1 % (13-45); MEAN CORPUSCULAR HEMOGLOBIN 29.4 pg (27.0-33.4); MEAN CORPUSCULAR HGB CONC 32.7 g/dL (32.0-36.0); MEAN CORPUSCULAR VOLUME 90 fl (80-97); MONOCYTES % (AUTO) 2.2 % (3-13); RED BLOOD COUNT 4.26 10^6/uL (3.72-5.28); RED CELL DISTRIBUTION WIDTH 16.2 % (11.5-14.0); SEGMENTED NEUTROPHILS % (AUTO) 90.5 % (42-78); WHITE BLOOD COUNT 14.8 10^3/uL (4.0-10.5)
[2017-05-13 06:43] LABS: ALANINE AMINOTRANSFERASE 28 U/L (9-52); ALBUMIN 3.9 g/dL (3.5-5.0); ALKALINE PHOSPHATASE 124 U/L (38-126); ANION GAP 15 (5-19); ASPARTATE AMINO TRANSFERASE 16 U/L (14-36); BILIRUBIN,DIRECT 0.4 mg/dL (0.0-0.4); BILIRUBIN,TOTAL 0.4 mg/dL (0.2-1.3); BLOOD UREA NITROGEN 31 mg/dL (7-20); CALCIUM 10.1 mg/dL (8.4-10.2); CARBON DIOXIDE 22 mmol/L (22-30); CHLORIDE 104 mmol/L (98-107); CREATININE RESULT 0.76 mg/dL (0.52-1.25); GLUCOSE 146 mg/dL (75-110); POTASSIUM 4.5 mmol/L (3.6-5.0); SODIUM 140.7 mmol/L (137-145)
[2017-05-13] MEDS: BUSPIRONE HCL 10 MG TABLET PO SCH (09:57)
[2017-05-13] MEDS: TRAMADOL HCL 50 MG TABLET PO PRN (10:34)
[2017-05-13] MEDS: METFORMIN HCL 500 MG TABLET PO SCH (10:35)
[2017-05-13] MEDS: FAMOTIDINE 20 MG TABLET PO SCH (10:35)
[2017-05-13] MEDS: METOPROLOL TARTRATE 100 MG TABLET PO SCH (10:35)
[2017-05-13] MEDS: LEVOTHYROXINE SODIUM 0.025 MG TABLET PO SCH (10:35)
[2017-05-13] MEDS: CLOPIDOGREL BISULFATE 75 MG TABLET PO SCH (10:35)
[2017-05-13] MEDS: LOSARTAN POTASSIUM 25 MG TABLET PO SCH (10:36)
[2017-05-13] MEDS: TIOTROPIUM BROMIDE DPI 5 CAP/KIT (18 MCG/CAP) IH SCH (10:43)
[2017-05-13] MEDS: ENOXAPARIN SODIUM INJ 40 MG/0.4 ML DISP.SYRIN SUBCUT SCH (10:43)
[2017-05-13] MEDS ORDERED: AMINOPHYLLINE INJ/PF 250 MG/10 ML SDV IV ONE (10:45)
[2017-05-13] MEDS ORDERED: REGADENOSON INJ 0.4 MG/5 ML DISP.SYRIN IV ONE (10:45)
--- NOTE | 2017-05-13 13:11 | DRAGON STRESS TEST REPORT ---
INTRAVENOUS LEXISCAN CARDIOLITE STRESS TEST USING SINGLE PHOTON EMMISION COMPUTERIZED TOMOGRAPHIC. DATE OF PROCEDURE: May 13, 2017 INDICATION : Chest pain CARDIAC RISK FACTORS: Patient with known CAD, prior myocardial infarction and stent placement. Patient has diabetes. RESTING EKG: Sinus tachycardia, no baseline ST segment changes STRESS EKG: No significant changes noted with LexiScan bolus REASON FOR TERMINATION: Protocol. PROCEDURE REPORT: Baseline heart rate 125 beats per minute with blood pressure of 140/100. Patient had no significant complaints. Heart rate at 2 minutes post bolus 139 with a blood pressure of 134/84. 3 minutes post bolus heart rate 126 with blood pressure of 127/81. No significant EKG changes were noted. Patient had no significant complaints during the procedure or postprocedure. Patient injected with Aminophyllin 75 mg at 3 minutes or later after Lexiscan bolus. CONCLUSIONS: Normal EKG and hemodynamic response to IV LexiScan. NUCLEAR DATA: At rest the patient was given 10.14 millicuries of technetium 99 sestamibi injected intravenously. As per protocol rest gated SPECT images were obtained. Subsequently the patient was given intravenous LexiScan at a dose of 0.4 mg in 5 mL intravenously, followed by flush with normal saline. Subsequently the stress dose of 42.7 millicuries of technetium 99 sestamibi was injected intravenously. As per protocol stress gated images were obtained. NUCLEAR INTERPRETATION: Both raw and processed data were used for interpretation. Visual, qualitative, computer-generated quantitative data was used. There was good myocardial uptake of technetium compound. Motion artifact and soft tissue attenuations were noted. Marked increased visceral uptake was noted, this seems to have impacted interpretation of inferior wall perfusion assessment accurately. Mild transient perfusion defect noted in the inferior wall consistent with mild ischemia. No definitive areas of fixed perfusion defect or scars noted. EKG gated imaging showed LV EF at 59 %, rest and stress gated EF similar visually, without any definite regional wall motion abnormalities except in the basal inferior wall. T. I D. ratio was 0.88. Lung heart ratio noted to be within normal limits 0.36. No significant extracardiac and abnormal radiotracer activities were noted. RV free wall uptake was noted to be increased. IMPRESSION: Also refer to comments under nuclear interpretation. Also test results needs to be interpreted in the context of pretest probability. 1. There is scintigraphic evidence of LexiScan induced mild myocardial ischemia , involving the inferior wall. 2. There is no definitive scintigraphic evidence of myocardial infarction/scar except for a smaller area of underlying fixed defect in the inferior wall. 3. EKG gated imaging shows left ventricular ejection fraction of approximately 59 %. No definite wall motion abnormalities however were noted, except in the basal inferior wall. 4. Clinical correlation requested as occasionally single vessel disease or balanced ischemia could be missed. In approximately 10% of the cases Lexiscan may not cause adequate vasodilatory stress. RECOMMENDATIONS: Aggressive risk factor modification, medical therapy. May consider heart catheterization if symptoms uncontrolled by medical management. Clinical correlation with echocardiogram derived ejection fraction. Inability to exercise by itself can lead to increased cardiovascular event risks. Consider cardiology consultation and or follow-up if clinically indicated. I AM AVAILABLE FOR CARDIOLOGY CONSULTATION AND FOLLOWUP IF REQUESTED BY OZZY Guevara M.D., LAL[employer] Sterilization Technician flash drier operator, Board certified in cardiovascular diseases, Nuclear cardiology, Echocardiography Cardiac CT and cardiac MRI Ph. [phone] [facility]
[2017-05-13 17:17] LABS: HEMATOCRIT 39.3 % (36.0-47.0); HEMOGLOBIN 12.9 g/dL (12.0-15.5); HGB HCT DIFFERENCE -0.6; MEAN CORPUSCULAR HEMOGLOBIN 29.3 pg (27.0-33.4); MEAN CORPUSCULAR HGB CONC 32.8 g/dL (32.0-36.0); MEAN CORPUSCULAR VOLUME 89 fl (80-97); RED CELL DISTRIBUTION WIDTH 16.4 % (11.5-14.0)
[2017-05-13 18:11] VITALS: BP 116/65
--- NOTE | 2017-05-13 19:59 | PDOC DISCHARGE SUMMARY ---
General - Admit/Disc Date/PCP Admission Date/Primary Care Provider: 05/10/17 16:26 CHEO PETERSEN MD Discharge Date: 05/13/17 - Discharge Diagnosis (1) Acute exacerbation of chronic obstructive pulmonary disease (COPD) Is this a current diagnosis for this admission?: Yes (2) Type 2 diabetes mellitus Is this a current diagnosis for this admission?: Yes (3) Old myocardial infarction Is this a current diagnosis for this admission?: Yes (4) Chest pain Is this a current diagnosis for this admission?: Yes - Additional Information Discharge Diet: As Tolerated, Cardiac, Diabetic Discharge Activity: Activity As Tolerated, Balance Activity w/Rest Home Medications: Albuterol Sulfate [Proair HFA] 2 puff IN Q4HP PRN 05/11/17 Atorvastatin Calcium [Lipitor 40 mg Tablet] 40 mg PO DAILY 05/11/17 Buspirone HCl [Buspar 10 mg Tablet] 10 mg PO Q12 05/11/17 Clopidogrel Bisulfate [Plavix 75 mg Tablet] 75 mg PO DAILY 05/11/17 Cyclobenzaprine HCl [Flexeril 10 mg Tablet] 10 mg PO Q8 05/11/17 Famotidine 20 mg PO DAILY 05/11/17 Levothyroxine Sodium [Synthroid 0.025 mg Tablet] 0.025 mg PO QAM 05/11/17 Losartan Potassium [Cozaar 25 mg Tablet] 25 mg PO DAILY 05/11/17 Metformin HCl [Glucophage] 1,000 mg PO Q12 05/11/17 Metoprolol Tartrate [Lopressor 100 mg Tablet] 200 mg PO DAILY 05/11/17 Tiotropium [place] [Spiriva Handihal[place] 18 mcg/dose (30 Dose)] 1 cap IN DAILY Vortioxetine Hydrobromide [Trintellix] 10 mg PO DAILY 05/11/17 Levofloxacin [Levaquin 750 mg Tablet] 750 mg PO DAILY #7 tablet 05/13/17 Prednisone 20 mg PO DAILY #30 tablet 05/13/17 Tramadol HCl/Acetaminophen [Tramadol-Acetaminophn 37.5-325] 1 each PO Q6 #120 tablet 05/13/17 History of Present Illness History of Present Illness: STAR ROSAS is a 51 year old female, she has a history of chronic obstructive pulmonary disease, ischemic heart disease, old myocardial. infarction, she came to the office for the evaluation of respiratory symptoms, cough, shortness of breath and wheezing. The oxygen saturation on pulse oximetry on FiO2 of 3 L was 94%. Patient was admitted directly from the office into the hospital because of concern for pneumonia, acute respiratory failure due to COPD exacerbation. The arterial blood gas that was done on FiO2 of 28% showed pH 7.37, PCO2 33.7 PCO2 50.8 bicarbonate 29, this is consistent with a mixed acid-base disorder. The initial chest x-ray that was done did not show any acute infiltrate to suggest pneumonia. She has a history of ischemic cardiomyopathy, she also complained of a chest pain, she described the pain as a pressure sensation. The chest pain is not provoked by exertion and is not relieved by rest Hospital Course Hospital Course: Patient was admitted for evaluation and management of chest pain and acute exacerbation of chronic obstructive pulmonary disease. She was treated with IV Solu-Medrol, IV antibiotic, three sets of cardiac enzymes were negative for acute myocardial infarction. She underwent Cardiolite Lexiscan stress test, there was scintigraphic evidence of mild ischemia in inferior wall, 2D echocardiogram showed preserved ejection fraction of left ventricle there was no definitive wall motion abnormalities. When patient was admitted she had florid wheezing with IV Solu-Medrol there was resolution of patient's symptoms she felt much better with treatment regimen. Physical Exam Vital Signs: Temp Pulse Resp BP Pulse Ox 97.9 F 86 18 116/65 97 05/13/17 17:59 05/13/17 17:59 05/13/17 17:59 05/13/17 17:59 05/13/17 17:59 Intake & Output 05/12/17 05/13/17 05/14/17 06:59 06:59 06:59 Intake Total 1608 892 974 Output Total 1800 400 Balance -192 492 974 Weight 94.1 kg 96.8 kg General appearance: PRESENT: no acute distress, well-developed, well-nourished Head exam: PRESENT: atraumatic, normocephalic Eye exam: PRESENT: conjunctiva pink, EOMI, PERRLA Ear exam: PRESENT: normal external ear exam Mouth exam: PRESENT: moist, tongue midline Neck exam: PRESENT: full ROM Respiratory exam: PRESENT: clear to auscultation cheyanne Cardiovascular exam: PRESENT: RRR, rubs, +S2 Pulses: PRESENT: normal dorsalis pedis pul, +2 pedal pulses bilateral Vascular exam: PRESENT: normal capillary refill GI/Abdominal exam: PRESENT: normal bowel sounds, soft Rectal exam: PRESENT: deferred Neurological exam: PRESENT: alert, awake, oriented to person, oriented to place , oriented to time, oriented to situation, CN II-XII grossly intact Psychiatric exam: PRESENT: appropriate affect, normal mood Skin exam: PRESENT: dry, intact, warm Results Laboratory Results: 05/13/17 17:10 05/13/17 06:10 05/13/17 05/13/17 05/13/17 06:10 06:10 17:10 WBC 14.8 H 18.0 H RBC 4.26 4.40 Hgb 12.5 12.9 Hct 38.4 39.3 MCV 90 89 MCH 29.4 29.3 MCHC 32.7 32.8 RDW 16.2 H 16.4 H Plt Count 302 344 Seg Neutrophils % 90.5 H Lymphocytes % 7.1 L Monocytes % 2.2 L Eosinophils % 0.1 Basophils % 0.1 Absolute Neutrophils 13.4 H Absolute Lymphocytes 1.1 Absolute Monocytes 0.3 Absolute Eosinophils 0.0 Absolute Basophils 0.0 Sodium 140.7 Potassium 4.5 Chloride 104 Carbon Dioxide 22 Anion Gap 15 BUN 31 H Creatinine 0.76 Est GFR ( Amer) > 60 Est GFR (Non-Af Amer) > 60 Glucose 146 H Calcium 10.1 Total Bilirubin 0.4 AST 16 ALT 28 Alkaline Phosphatase 124 Total Protein 7.0 Albumin 3.9 05/10/17 05/10/17 05/11/17 17:25 17:25 01:10 Creatine Kinase 61 50 CK-MB (CK-2) 3.38 Troponin I < 0.012 05/11/17 05/11/17 05/11/17 01:10 09:31 09:31 Creatine Kinase 49 CK-MB (CK-2) 2.68 2.57 Troponin I < 0.012 < 0.012 Impressions: Chest X-Ray 05/10/17 00:00 IMPRESSION: NO ACUTE RADIOGRAPHIC FINDING IN THE CHEST. Chest CT 05/11/17 00:00 IMPRESSION: Calcified coronary arteries. No lung parenchymal infiltrates. No worrisome nodules.
== END 2017-05-13 18:33 | disposition home or self-care (01) | DRG 192 ==
LOC: 3N 16:26 → 3S 05-12 21:01
PROVIDERS: ADMIT Internal Medicine; ATTEND Internal Medicine
PROC: 3E0F73Z Introduction of Anti-inflammatory into Respiratory Tract, Via Natural or Artificial Opening (ICD-10-PCS; principal; 2017-05-10)
DX: J44.1 Chronic obstructive pulmonary disease with (acute) exacerbation (principal); E11.42 Type 2 diabetes mellitus with diabetic polyneuropathy; F32.9 Major depressive disorder, single episode, unspecified; I25.10 Atherosclerotic heart disease of native coronary artery without angina pectoris; I25.2 Old myocardial infarction; I25.5 Ischemic cardiomyopathy; Z88.0 Allergy status to penicillin; Z87.891 Personal history of nicotine dependence; Z79.899 Other long term (current) drug therapy; Z95.5 Presence of coronary angioplasty implant and graft
CPT/HCPCS: 36415; 36600; 71010; 71250; 78452; 80048; 80053; 80076; 81001; 82550; 82553; 82803; 82962; 83036; 84484; 85025; 85027; 85379; 93005; 93010; 93017; 93306; A9500; J0280; J1650; J1815; J1956; J2785; J2930; J3490; J7620; Q9969

== ENCOUNTER → 2018-02-16 | Outpatient (CLI) | payer MEDICARE, MEDICAID ==
--- NOTE | 2018-02-16 14:15 | WOMENS IMAGING REPORT ---
EXAM DESCRIPTION: 3D SCREENING MAMMO BILAT COMPLETED DATE/TIME: 02/16/2018 1:06 pm REASON FOR STUDY: SCREENING MAMMO Z12.31 ENCNTR SCREEN MAMMOGRAM FOR MALIGNANT NEOPLASM OF ALESSIO COMPARISON: 01/27/2017 and 08/05/2015. TECHNIQUE: Standard craniocaudal and mediolateral oblique views of each breast recorded using digita l acquisition and breast tomosynthesis. LIMITATIONS: None. FINDINGS: No masses, calcifications or architectural distortion. No areas of suspicion. Read with the assistance of CAD. .[facility] R2 Cenova Version 1.3 .[facility] - R2 Cenova Version 1.3 .[facility] - R2 Cenova Version 2.4 .[facility] [place]2 Cenova Version 2.4 .[facility] - R2 [facility] Version 9.2 IMPRESSION: NORMAL MAMMOGRAM. BIRADS 1. BREAST DENSITY: a. The breasts are almost entirely fatty. BIRAD: 1 NEGATIVE RECOMMENDATION: ROUTINE SCREENING COMMENT: The patient has been notified of the results by letter per SA requirements. Additional no tification policies are in place for contacting patient with suspicious or incomplete findings. Quality ID #[id number]: The [employer] recommends an annual screening mammogram for women aged 40 years or over. This facility utilizes a reminder system to ensure that all patients receive reminder letters, and/or direct phone calls for appointments. This includes reminders for routine scr eening mammograms, diagnostic mammograms, or other Breast Imaging Interventions when appropriate. Th is patient will be placed in the appropriate reminder system. The [employer] (ACR) has developed recommendations for screening MRI of the breast s in certain patient populations, to be used in conjunction with mammography. Breast MRI surveillanc e may be appropriate for women with more than 20% lifetime risk of developing breast cancer as deter mined by genetic testing, significant family history of the disease, or history of mantle radiation f or Hodgkins Disease. ACR Practice Guidelines 2008. DBT Technology DBT is a type of tomographic mammography. With conventional mammography, overlapping breast tissue ma y make lesions difficult to detect, even with good compression. DBT uses an x-ray tube that rotates a round the breast, taking images at different angles. These images are then combined to create thin sl ices of the breast that the radiologist can view as a 3D reconstruction. The [employer]ip[employer] unit can perform full-field digital mammograms (2D imaging); or DBT (3D imaging); or both, in a combination mode that quickly performs both the mammogram and the tomosynthesis scan while the breast is still compressed. PQRS 6045F: Fluoroscopic imaging is not utilized for breast tomosynthesis. TECHNICAL DOCUMENTATION: FINDING NUMBER: (1) ASSESSMENT: (1) JOB ID: [id number] [email or web address]- All Rights Reserved Reading location - IP/workstation name: [email or web address]
== END ==
LOC: WI 12:43
PROVIDERS: ATTEND Internal Medicine
DX: Z12.31 Encounter for screening mammogram for malignant neoplasm of breast (principal)
CPT/HCPCS: 77063; 77067

== ENCOUNTER 2018-12-14 18:20 | Observation (INO) | payer MEDICARE, MEDICAID ==
[2018-12-14] MEDS: NORMAL SALINE 1000 ML 1,000 ML IV PRN (19:42)
[2018-12-14 20:03] LABS: APPEARANCE,URINE CLOUDY; BILIRUBIN,URINE NEGATIVE (NEGATIVE); COLOR,URINE YELLOW; GLUCOSE, URINE NEGATIVE (NEGATIVE); KETONES,URINE NEGATIVE (NEGATIVE); LEUKOCYTE ESTERASE,URINE LARGE (NEGATIVE); NITRITE,URINE NEGATIVE (NEGATIVE); PROTEIN,URINE NEGATIVE (NEGATIVE)
[2018-12-14 20:22] LABS: HEMOGLOBIN 13.6 g/dL (12.0-15.5); MEAN CORPUSCULAR HEMOGLOBIN 28.7 pg (27.0-33.4); MEAN CORPUSCULAR HGB CONC 33.2 g/dL (32.0-36.0); MEAN CORPUSCULAR VOLUME 86 fl (80-97); PLATELET COUNT 260 10^3/uL (150-450); RED BLOOD COUNT 4.74 10^6/uL (3.72-5.28); RED CELL DISTRIBUTION WIDTH 15.5 % (11.5-14.0); WHITE BLOOD COUNT 11.7 10^3/uL (4.0-10.5)
[2018-12-14 20:35] LABS: ALANINE AMINOTRANSFERASE 24 U/L (9-52); ALBUMIN 3.9 g/dL (3.5-5.0); ALKALINE PHOSPHATASE 123 U/L (38-126); ANION GAP 10 (5-19); ASPARTATE AMINO TRANSFERASE 20 U/L (14-36); BILIRUBIN,DIRECT 0.3 mg/dL (0.0-0.4); BILIRUBIN,TOTAL 0.3 mg/dL (0.2-1.3); BLOOD UREA NITROGEN 13 mg/dL (7-20); CALCIUM 9.2 mg/dL (8.4-10.2); CARBON DIOXIDE 23 mmol/L (22-30); CHLORIDE 104 mmol/L (98-107); CREATINE KINASE 43 U/L (30-135); GLUCOSE 107 mg/dL (75-110); IRON(TIBC) 105.8 ug/dL (37-170); SODIUM 137.4 mmol/L (137-145); TOTAL PROTEIN 7.3 g/dL (6.3-8.2)
[2018-12-14 20:47] LABS: CREATINE KINASE MB 1.53 ng/mL (<4.55)
[2018-12-14 20:50] LABS: TROPONIN I < 0.012 ng/mL
--- NOTE | 2018-12-14 21:12 | RADIOLOGY REPORT (SQ) ---
EXAM DESCRIPTION: Chest 2 views Views: 2 CLINICAL HISTORY: 53 years Female, suspicious chest pain COMPARISON: CT 05/11/2017 FINDINGS: Lungs are hyperinflated. No focal acute infiltrate. No pneumothorax or pleural effusion. No suspicious nodules. Cardiomediastinal silhouette is within normal limits. Bony structures are unremarkable for age. IMPRESSION: 1. Hyperinflation, suggesting COPD 2. No focal acute infiltrates
[2018-12-14] MEDS ORDERED: (PENDING PHARMACY ID) (Fluticasone/Salmeterol 1 INH) IH SCH (22:00)
[2018-12-14] MEDS ORDERED: (PENDING PHARMACY ID) (Tramadol Hcl/Acetaminophen [Tramadol-Acetaminophn 37.5-325] 1 EACH) PO SCH (22:00)
[2018-12-14] MEDS ORDERED: (PENDING PHARMACY ID) (Tiotropium Bromide [Spiriva Respimat] 2 PUFF) IH SCH (22:00)
--- NOTE | 2018-12-14 22:29 | PDOC H&P ---
History of Present Illness Admission Date/PCP: 12/14/18 18:20 CHEO PETERSEN MD History of Present Illness: STAR ROSAS is a 53 year old female, She came to the office for follow-up evaluation,She complain of chest pain, the chest pain is not exertional in character, the pain radiates to the left upper extremities. She has a history of coronary artery disease, because of the underlying coronary artery disease she is admitted directly to the hospital for evaluation and management Past Medical History Cardiac Medical History: Reports: Coronary Artery Disease, Myocardial Infarction - x2, Hyperlipidema, Hypertension Pulmonary Medical History: Reports: Asthma, Chronic Obstructive Pulmonary Disease (COPD) Endocrine Medical History: Reports: Diabetes Mellitus Type 2 Psychiatric Medical History: Reports: Depression Past Surgical History Past Surgical History: Reports: Cardiac Catheterization, Orthopedic Surgery - ri ght knee, Tubal Ligation Social History Smoking Status: Former Smoker Number of Years Smokin Last Time Smoked: 2010 Frequency of Alcohol Use: None Hx Recreational Drug Use: No Drugs: None Hx Prescription Drug Abuse: No Family History Family History: Reviewed & Not Pertinent Parental Family History Reviewed: Yes Children Family History Reviewed: Yes Sibling(s) Family History Reviewed.: Yes Medication/Allergy Home Medications: Buspirone HCl [Buspar 10 mg Tablet] 10 mg PO Q12 05/11/17 RX: Albuterol Sulfate [Proair HFA] 2 puff IN Q6HP PRN 05/11/17 RX: Atorvastatin Calcium [Lipitor 40 mg Tablet] 40 mg PO DAILY 05/11/17 RX: Clopidogrel Bisulfate [Plavix 75 mg Tablet] 75 mg PO DAILY 05/11/17 RX: Cyclobenzaprine HCl [Flexeril 10 mg Tablet] 10 mg PO Q8 05/11/17 RX: Famotidine 20 mg PO DAILY 05/11/17 RX: Levothyroxine Sodium [Synthroid 0.025 mg Tablet] 0.025 mg PO QAM 05/11/17 RX: Losartan Potassium [Cozaar 25 mg Tablet] 25 mg PO DAILY 05/11/17 RX: Metformin HCl [Glucophage] 1,000 mg PO Q12 05/11/17 RX: Metoprolol Tartrate [Lopressor 100 mg Tablet] 200 mg PO DAILY 05/11/17 RX: Tramadol HCl/Acetaminophen [Tramadol-Acetaminophn 37.5-325] 1 each PO Q6 #120 tablet 05/13/17 Aspirin [Aspirin 325 mg Tablet] 325 mg PO DAILY 12/14/18 Fluticasone/Salmeterol [Advair 250-50 Diskus 14 Dose/Diskus] 1 inh IH Q12H 12/14/18 Multivitamin [Daily Multiple Vitamin] 1 each PO DAILY 12/14/18 Tiotropium [place] [Spiriva Respimat] 2 puff IH DAILY 12/14/18 Allergies/Adverse Reactions: Penicillins Allergy (Verified 08/17/13 21:34) Review of Systems Constitutional: ABSENT: chills, fever(s), headache(s), weight gain, weight loss Eyes: ABSENT: visual disturbances Ears: ABSENT: hearing changes Cardiovascular: PRESENT: chest pain Respiratory: ABSENT: cough, hemoptysis Gastrointestinal: ABSENT: abdominal pain, constipation, diarrhea, hematemesis, hematochezia, nausea, vomiting Genitourinary: ABSENT: dysuria, hematuria Musculoskeletal: ABSENT: joint swelling Integumentary: ABSENT: rash, wounds Neurological: ABSENT: abnormal gait, abnormal speech, confusion, dizziness, focal weakness, syncope Psychiatric: ABSENT: anxiety, depression, homidical ideation, suicidal ideation Endocrine: ABSENT: cold intolerance, heat intolerance, menstrual abnormalities, polydipsia, polyuria Hematologic/Lymphatic: ABSENT: easy bleeding, easy bruising, lymphadenopathy Physical Exam Vital Signs: Temp Pulse Resp BP Pulse Ox 99.0 F 90 16 123/81 98 12/14/18 19:52 12/14/18 19:52 12/14/18 19:52 12/14/18 19:52 12/14/18 19:52 Intake & Output 12/13/18 12/14/18 12/15/18 06:59 06:59 06:59 Weight 90.9 kg General appearance: PRESENT: no acute distress Head exam: PRESENT: atraumatic, normocephalic Eye exam: PRESENT: conjunctiva pink, EOMI, PERRLA Ear exam: PRESENT: normal external ear exam Mouth exam: PRESENT: moist, tongue midline Neck exam: PRESENT: full ROM Respiratory exam: PRESENT: clear to auscultation cheyanne Cardiovascular exam: PRESENT: RRR, +S1, +S2 Vascular exam: PRESENT: normal capillary refill GI/Abdominal exam: PRESENT: normal bowel sounds, soft Rectal exam: PRESENT: deferred Neurological exam: PRESENT: alert, awake, oriented to person, oriented to place, oriented to time, oriented to situation, CN II-XII grossly intact Psychiatric exam: PRESENT: appropriate affect, normal mood Skin exam: PRESENT: dry, intact, warm Results Laboratory Results: 12/14/18 19:55 12/14/18 19:55 12/14/18 12/14/18 12/14/18 19:00 19:55 19:55 WBC 11.7 H RBC 4.74 Hgb 13.6 Hct 41.0 MCV 86 MCH 28.7 MCHC 33.2 RDW 15.5 H Plt Count 260 Sodium 137.4 Potassium 5.0 Chloride 104 Carbon Dioxide 23 Anion Gap 10 BUN 13 Creatinine 0.69 Est GFR ( Amer) > 60 Est GFR (Non-Af Amer) > 60 Glucose 107 Calcium 9.2 Iron 105.8 TIBC 381 % Saturation 28 Ferritin 12.90 Total Bilirubin 0.3 AST 20 ALT 24 Alkaline Phosphatase 123 Total Protein 7.3 Albumin 3.9 Urine Color YELLOW Urine Appearance CLOUDY Urine pH 5.0 Ur Specific [place] 1.020 Urine Protein NEGATIVE Urine Glucose (UA) NEGATIVE Urine Ketones NEGATIVE Urine Blood NEGATIVE Urine Nitrite NEGATIVE Ur Leukocyte Esterase LARGE H Urine WBC (Auto) 75 Urine RBC (Auto) 9 12/14/18 12/14/18 19:55 19:55 Creatine Kinase 43 CK-MB (CK-2) 1.53 Troponin I < 0.012 Impressions: Chest X-Ray 12/14/18 00:00 IMPRESSION: 1. Hyperinflation, suggesting COPD 2. No focal acute infiltrates Assessment & Plan - Diagnosis (1) Chest pain Qualifiers: Chest pain type: unspecified Qualified Code(s): R07.9 - Chest pain, unspecified Is this a current diagnosis for this admission?: Yes Plan: He has history of coronary artery disease she presented with chest pain (2) Chronic obstructive pulmonary disease Qualifiers: COPD type: unspecified COPD Qualified Code(s): J44.9 - Chronic obstructive pulmonary disease, unspecified Is this a current diagnosis for this admission?: Yes (3) Coronary artery disease Qualifiers: Coronary Disease-Associated Artery/Lesion type: nome artery [place] vs. transplanted heart: nome heart Is this a current diagnosis for this admission?: Yes (4) Type 2 diabetes mellitus Qualifiers: Diabetes mellitus senior care insulin use: without senior care use Diabetes mellitus complication status: with neurologic complications Diabetes mellitus complication detail: with polyneuropathy Qualified Code(s): E11.42 - Type 2 diabetes mellitus with diabetic polyneuropathy Is this a current diagnosis for this admission?: Yes
[2018-12-14] MEDS: MULTIVITAMIN TABLET PO SCH (22:31)
[2018-12-14] MEDS: ATORVASTATIN CALCIUM 40 MG TABLET PO SCH (22:31)
[2018-12-14] MEDS: BUSPIRONE HCL 10 MG TABLET PO SCH (22:31)
[2018-12-14] MEDS: FAMOTIDINE 20 MG TABLET PO SCH (22:31)
[2018-12-14] MEDS: METFORMIN HCL 500 MG TABLET PO SCH (22:31)
[2018-12-14] MEDS: METOPROLOL TARTRATE 100 MG TABLET PO SCH (22:31)
[2018-12-14] MEDS: ASPIRIN 325 MG TABLET PO SCH (22:31)
[2018-12-14] MEDS: LOSARTAN POTASSIUM 25 MG TABLET PO SCH (22:31)
[2018-12-14] MEDS ORDERED: ALBUTEROL SULFATE HFA (90 MCG/PUFF) 8 GM MDI (1 MDI/ER DISP) IH PRN (23:03)
[2018-12-15 05:39] LABS: CREATINE KINASE MB 1.92 ng/mL (<4.55)
[2018-12-15 05:49] LABS: TROPONIN I < 0.012 ng/mL
--- NOTE | 2018-12-15 07:41 | EKG REPORT ---
SEVERITY:- ABNORMAL ECG - SINUS RHYTHM PROBABLE LEFT ATRIAL ABNORMALITY BORDERLINE LEFT AXIS DEVIATION NONSPECIFIC T ABNORMALITIES, ANT-LAT LEADS : Confirmed by: Christian Garvey MD 15-Dec-2018 07:41:22
[2018-12-15] MEDS ORDERED: LEVOTHYROXINE SODIUM 0.025 MG TABLET PO SCH (08:00)
[2018-12-15] MEDS ORDERED: ALBUTEROL SULFATE HFA (90 MCG/PUFF) 200 PUFF/8.5 GM MDI IH PRN (08:30)
[2018-12-15] MEDS ORDERED: FLUTICASONE/VILANTEROL 200-25 MCG/DOSE IH SCH (10:00)
[2018-12-15] MEDS: METOPROLOL TARTRATE 100 MG TABLET PO SCH (10:25)
[2018-12-15] MEDS: BUSPIRONE HCL 10 MG TABLET PO SCH ×2 (10:26→21:03)
[2018-12-15] MEDS: METFORMIN HCL 500 MG TABLET PO SCH ×2 (10:26→21:03)
[2018-12-15] MEDS: MULTIVITAMIN TABLET PO SCH (10:26)
[2018-12-15] MEDS: FAMOTIDINE 20 MG TABLET PO SCH (10:26)
[2018-12-15] MEDS: ASPIRIN 325 MG TABLET PO SCH (10:26)
[2018-12-15] MEDS: LOSARTAN POTASSIUM 25 MG TABLET PO SCH (10:26)
[2018-12-15 12:36] LABS: ABSOLUTE RETICS # 0.083 10^6/uL (0.028-0.122); RETICULOCYTE COUNT (AUTO) 1.86 % (0.66-2.85)
[2018-12-15 12:41] LABS: CREATINE KINASE MB 2.17 ng/mL (<4.55)
[2018-12-15 12:42] LABS: TROPONIN I < 0.012 ng/mL
[2018-12-15 12:48] LABS: IRON(TIBC) 84.8 ug/dL (37-170)
[2018-12-15] MEDS: NORMAL SALINE 1000 ML 1,000 ML IV PRN (15:57)
--- NOTE | 2018-12-15 20:29 | PDOC DISCHARGE SUMMARY ---
General - Admit/Disc Date/PCP Admission Date/Primary Care Provider: 12/14/18 18:20 CHEO PETERSEN MD Discharge Date: 12/15/18 - Discharge Diagnosis (1) Chest pain Is this a current diagnosis for this admission?: Yes (2) Chronic obstructive pulmonary disease Is this a current diagnosis for this admission?: Yes (3) Coronary artery disease Is this a current diagnosis for this admission?: Yes (4) Type 2 diabetes mellitus Is this a current diagnosis for this admission?: Yes - Additional Information Home Medications: Albuterol Sulfate [Proair HFA] 2 puff IN Q6HP PRN 05/11/17 Atorvastatin Calcium [Lipitor 40 mg Tablet] 40 mg PO DAILY 05/11/17 Buspirone HCl [Buspar 10 mg Tablet] 10 mg PO Q12 05/11/17 Cyclobenzaprine HCl [Flexeril 10 mg Tablet] 10 mg PO Q8 05/11/17 Famotidine 20 mg PO DAILY 05/11/17 Levothyroxine Sodium [Synthroid 0.025 mg Tablet] 0.025 mg PO QAM 05/11/17 Losartan Potassium [Cozaar 25 mg Tablet] 25 mg PO DAILY 05/11/17 Metformin HCl [Glucophage] 1,000 mg PO Q12 05/11/17 Metoprolol Tartrate [Lopressor 100 mg Tablet] 200 mg PO DAILY 05/11/17 Tramadol HCl/Acetaminophen [Tramadol-Acetaminophn 37.5-325] 1 each PO Q6 #120 tablet 05/13/17 Aspirin [Aspirin 325 mg Tablet] 325 mg PO DAILY 12/14/18 Fluticasone/Salmeterol [Advair 250-50 Diskus 14 Dose/Diskus] 1 inh IH Q12H 12/14/18 Multivitamin [Daily Multiple Vitamin] 1 each PO DAILY 12/14/18 Tiotropium [place] [Spiriva Respimat] 2 puff IH DAILY 12/14/18 History of Present Illness History of Present Illness: STAR ROSAS is a 53 year old female, She came to the office for follow-up evaluation,She complain of chest pain, the chest pain is not exertional in character, the pain radiates to the left upper extremities. She has a history of coronary artery disease, because of the underlying coronary artery disease she is admitted directly to the hospital for evaluation and management.She craves ice that suggest iron deficiency but the iron status evaluation was normal Hospital Course Hospital Course: Patient was admitted for evaluation and management of chest pain, 3 sets of cardiac enzymes negative for acute VA, unfortunately a pharmacologic stress test could not be done today the next available test is on Tuesday, today is Tuesday, patient is not willing to stay the weekend just to have a stress test on Tuesday, she wants to be discharged home, outpatient stress test to be arranged by my office on Tuesday Physical Exam Vital Signs: Temp Pulse Resp BP Pulse Ox 97.8 F 66 17 113/62 100 12/15/18 15:27 12/15/18 15:27 12/15/18 15:27 12/15/18 15:27 12/15/18 15:27 Intake & Output 12/14/18 12/15/18 12/16/18 06:59 06:59 06:59 Intake Total 1350 Output Total 0 Balance 0 1350 Weight 91.8 kg General appearance: PRESENT: no acute distress Head exam: PRESENT: atraumatic, normocephalic Eye exam: PRESENT: PERRLA Ear exam: PRESENT: normal external ear exam Mouth exam: PRESENT: moist, tongue midline Neck exam: PRESENT: full ROM Respiratory exam: PRESENT: clear to auscultation cheyanne Cardiovascular exam: PRESENT: RRR, +S1, +S2 Pulses: PRESENT: normal dorsalis pedis pul, +2 pedal pulses bilateral Vascular exam: PRESENT: normal capillary refill GI/Abdominal exam: PRESENT: normal bowel sounds, soft Rectal exam: PRESENT: deferred Neurological exam: PRESENT: alert, awake, oriented to person, oriented to place, oriented to time, oriented to situation, CN II-XII grossly intact Psychiatric exam: PRESENT: appropriate affect, normal mood Skin exam: PRESENT: dry, intact, warm Results Laboratory Results: 12/14/18 19:55 12/14/18 19:55 12/14/18 12/14/18 12/15/18 19:55 19:55 04:01 WBC 11.7 H RBC 4.74 Hgb 13.6 Hct 41.0 MCV 86 MCH 28.7 MCHC 33.2 RDW 15.5 H Plt Count 260 Retic Count (auto) 1.86 Absolute Retic 0.083 Sodium 137.4 Potassium 5.0 Chloride 104 Carbon Dioxide 23 Anion Gap 10 BUN 13 Creatinine 0.69 Est GFR ( Amer) > 60 Est GFR (Non-Af Amer) > 60 Glucose 107 Calcium 9.2 Iron 105.8 TIBC 381 % Saturation 28 Ferritin 12.90 Total Bilirubin 0.3 AST 20 ALT 24 Alkaline Phosphatase 123 Total Protein 7.3 Albumin 3.9 Vitamin B12 Folate 12/15/18 04:01 WBC RBC Hgb Hct MCV MCH MCHC RDW Plt Count Retic Count (auto) Absolute Retic Sodium Potassium Chloride Carbon Dioxide Anion Gap BUN Creatinine Est GFR ( Amer) Est GFR (Non-Af Amer) Glucose Calcium Iron 84.8 TIBC 358 % Saturation 24 Ferritin 14.40 Total Bilirubin AST ALT Alkaline Phosphatase Total Protein Albumin Vitamin B12 > 1000.0 H Folate 10.20 12/14/18 12/14/18 12/15/18 19:55 19:55 04:01 Creatine Kinase 43 43 CK-MB (CK-2) 1.53 Troponin I < 0.012 12/15/18 12/15/18 12/15/18 04:01 11:58 11:58 Creatine Kinase 46 CK-MB (CK-2) 1.92 2.17 Troponin I < 0.012 < 0.012 Impressions: Chest X-Ray 12/14/18 00:00 IMPRESSION: 1. Hyperinflation, suggesting COPD 2. No focal acute infiltrates Qualifiers - * PATIENT BEING DISCHARGED WITH ANY OF THE FOLLOWING DIAGNOSIS: No
[2018-12-15] MEDS ORDERED: BUTALB/ACETAMINOPHEN/CAFFEINE 1 TAB EACH PO PRN (21:00)
[2018-12-15] MEDS: ATORVASTATIN CALCIUM 40 MG TABLET PO SCH (21:03)
[2018-12-16 09:15] VITALS: BP 137/67
== END 2018-12-16 09:24 | disposition home or self-care (01) ==
LOC: 3S 18:20
PROVIDERS: ADMIT Internal Medicine; ATTEND Internal Medicine
DX: R07.9 Chest pain, unspecified (principal); J44.9 Chronic obstructive pulmonary disease, unspecified; I25.10 Atherosclerotic heart disease of native coronary artery without angina pectoris; E11.42 Type 2 diabetes mellitus with diabetic polyneuropathy; I10 Essential (primary) hypertension; E03.9 Hypothyroidism, unspecified; I25.2 Old myocardial infarction; Z82.49 Family history of ischemic heart disease and other diseases of the circulatory system; Z87.891 Personal history of nicotine dependence; Z79.84 Long term (current) use of oral hypoglycemic drugs; Z79.02 Long term (current) use of antithrombotics/antiplatelets; Z79.899 Other long term (current) drug therapy; Z95.5 Presence of coronary angioplasty implant and graft
CPT/HCPCS: 36415 ×2; 82553 ×2; 82962; 82607; 82550 ×2; 82728 ×2; 82746; 83540 ×2; 83550 ×2; 85027; 85045; 80076; 80048; 81001; 84484 ×2; 71046; 93005; 93010; G0378 ×3; G0379; A9270 ×15; J7030 ×2; J3490; 78452; A9500; Q9969

== ENCOUNTER → 2019-01-04 | Outpatient (CLI) | payer MEDICARE, MEDICAID ==
[~2019-01-04] MED LIST: AMINOPHYLLINE INJ/PF 250 MG/10 ML SDV IV ONE; REGADENOSON INJ 0.4 MG/5 ML DISP.SYRIN IV ONE
--- NOTE | 2019-01-04 19:25 | DRAGON STRESS TEST REPORT ---
INTRAVENOUS LEXISCAN CARDIOLITE STRESS TEST USING SINGLE PHOTON EMMISION COMPUTERIZED TOMOGRAPHIC. DATE OF PROCEDURE: January 04, 2019, INDICATION : Chest pain CARDIAC RISK FACTORS: Diabetes, hypertension, dyslipidemia, known CAD. Prior stent placement RESTING EKG: Sinus rhythm without any baseline ST-T wave changes STRESS EKG: No significant ST segment changes noted with LexiScan bolus REASON FOR TERMINATION: Protocol. PROCEDURE REPORT: Baseline heart rate 71 beats per minute with blood pressure of 108/63. Patient had no significant complaints. Patient was bolused with Lexiscan 0.4 mg intravenously followed by saline bolus. Heart rate at 2 minutes post bolus 81 with a blood pressure of 92/50. 3 minutes post bolus heart rate 76 with blood pressure of 97/53. No significant EKG changes were noted. Patient had no significant complaints during the procedure or postprocedure. CONCLUSIONS: Normal EKG and hemodynamic response to IV LexiScan. NUCLEAR DATA: At rest the patient was given 13.86 millicuries of technetium 99 sestamibi injected intravenously. As per protocol rest gated SPECT images were obtained. On day of stress test, the patient was given intravenous LexiScan at a dose of 0.4 mg in 5 mL intravenously, followed by flush with normal saline. Subsequently the stress dose of 42.3 millicuries of technetium 99 sestamibi was injected intravenously. As per protocol stress gated images were obtained. NUCLEAR INTERPRETATION: Both raw and processed data were used for interpretation. Visual, qualitative, computer-generated quantitative data was used. There was good myocardial uptake of technetium compound. Motion artifact and soft tissue attenuations were noted. Increased visceral uptake was noted. Significant interference from increased visceral uptake was noted causing difficulty in interpreting inferior wall perfusion. However inferior wall mild to moderate transient perfusion defect noted, No definitive areas of fixed perfusion defect or scars noted. EKG gated imaging showed LV EF at 58 %, rest and stress gated EF similar visually. Probable mild inferior wall hypokinesia. T. I D. ratio was 1.83. Lung heart ratio noted to be within normal limits 0.26. No significant extracardiac and abnormal radiotracer activities were noted. RV free wall uptake was noted to be increased. IMPRESSION: Also refer to comments under nuclear interpretation. Also test results needs to be interpreted in the context of pretest probability. 1. Inferior wall mild to moderate transient perfusion defect noted indicative of mild to moderate ischemia. Please see comments under nuclear interpretation as there was significant interference from visceral uptake. 2. There is no definitive scintigraphic evidence of myocardial infarction/scar. 3. EKG gated imaging shows left ventricular ejection fraction of approx. 58 %. Probable mild inferior wall hypokinesia. Transient ischemic dilatation ratio was noted to be high however feel that this is artifactual as visually it did not seem significant. 4. Clinical correlation requested as worse disease and or balanced ischemia could be missed. In approximately 10% of the cases Lexiscan may not cause adequate vasodilatory stress. RECOMMENDATIONS: Aggressive risk factor modification and medical management. Further evaluation may be needed if continued symptoms or other high risk indicators are noted on clinical evaluation. May consider stress echo if patient able to walk on the treadmill. Close cardiology follow-up is also recommended. Clinical correlation with echocardiogram derived ejection fraction. Inability to exercise by itself can lead to increased cardiovascular event risks. Consider cardiology consultation and or follow-up if clinically indicated. I am available for cardiology evaluation and consultation if requested by the hydraulic press tender, unless patient already has a senior restaurant manager. Dr. Hansa Guevara. MRCP Board certified in cardiology and sleep medicine. Board certified in nuclear cardiology, adult echocardiography. DANN
== END ==
LOC: RAD 07:06
PROVIDERS: ATTEND Internal Medicine
DX: R07.9 Chest pain, unspecified (principal)
CPT/HCPCS: 93017; 78452; A9500; J2785; J0280; Q9969

== ENCOUNTER → 2019-03-05 | Outpatient (CLI) | payer MEDICARE, MEDICAID ==
--- NOTE | 2019-03-05 14:40 | WOMENS IMAGING REPORT ---
EXAM DESCRIPTION: 3D SCREENING MAMMO BILAT COMPLETED DATE/TIME: 03/05/2019 1:31 pm REASON FOR STUDY: Z12.31 ROUTINE 3D BILATERAL SCREENING Z12.31 ENCNTR SCREEN MAMMOGRAM FOR MALIGNAN T NEOPLASM OF ALESSIO COMPARISON: [id number] EXAM PARAMETERS: Views: Standard craniocaudal and mediolateral oblique views of each breast recorded using digital acquisition and breast tomosynthesis. Read with the assistance of CAD. .[facility] - [employer] Image Scientist Version 9.2 LIMITATIONS: None. FINDINGS: No suspicious masses, suspicious calcifications or architectural distortion. No areas of c oncern. IMPRESSION: NEGATIVE MAMMOGRAM. BIRADS 1. BREAST DENSITY: a. The breasts are almost entirely fatty. BIRAD: ASSESSMENT: 1 NEGATIVE RECOMMENDATION: ROUTINE SCREENING COMMENT: The patient has been notified of the results by letter per SA requirements. Additional no tification policies are in place for contacting patient with suspicious or incomplete findings. Quality ID #225: The [employer] recommends an annual screening mammogram for women aged 40 years or over. This facility utilizes a reminder system to ensure that all patients receive reminder letters, and/or direct phone calls for appointments. This includes reminders for routine scr eening mammograms, diagnostic mammograms, or other Breast Imaging Interventions when appropriate. Th is patient will be placed in the appropriate reminder system. TECHNICAL DOCUMENTATION: FINDING NUMBER: (1) ASSESSMENT: (1) JOB ID: [id number] [employer]- All Rights Reserved Reading location - IP/workstation name: [email or web address]
== END ==
LOC: RAD 13:08
PROVIDERS: ATTEND Internal Medicine
DX: Z12.31 Encounter for screening mammogram for malignant neoplasm of breast (principal)
CPT/HCPCS: 77063; 77067

== ENCOUNTER → 2020-03-17 | Outpatient (CLI) | payer MEDICARE, MEDICAID ==
--- NOTE | 2020-03-18 13:26 | WOMENS IMAGING REPORT ---
EXAM DESCRIPTION: 3D SCREENING MAMMO BILAT IMAGES COMPLETED DATE/TIME: 03/17/2020 3:24 pm REASON FOR STUDY: Z12.31 ENCNTR SCREEN MAMMOGRAM FOR MALIGNANT NEOPLASM OF BREAST Z12.31 ENCNTR SCR EEN MAMMOGRAM FOR MALIGNANT NEOPLASM OF ALESSIO COMPARISON: Multiple since 2017 EXAM PARAMETERS: Views: Standard craniocaudal and mediolateral oblique views of each breast recorded using digital acquisition and breast tomosynthesis. Read with the assistance of CAD. .[facility] - [employer] Version 9.2 LIMITATIONS: None. FINDINGS: No suspicious masses, suspicious calcifications or architectural distortion. No areas of c oncern. IMPRESSION: NEGATIVE MAMMOGRAM. BIRADS 1. BREAST DENSITY: a. The breasts are almost entirely fatty. BIRAD: ASSESSMENT: 1 NEGATIVE RECOMMENDATION: ROUTINE SCREENING Please continue yearly bilateral screening mammography/tomosynthesis in March 2021 COMMENT: The patient has been notified of the results by letter per SA requirements. Additional no tification policies are in place for contacting patient with suspicious or incomplete findings. Quality ID #[id number]: The [employer] recommends an annual screening mammogram for women aged 40 years or over. This facility utilizes a reminder system to ensure that all patients receive reminder letters, and/or direct phone calls for appointments. This includes reminders for routine scr eening mammograms, diagnostic mammograms, or other Breast Imaging Interventions when appropriate. Th is patient will be placed in the appropriate reminder system. TECHNICAL DOCUMENTATION: FINDING NUMBER: (1) ASSESSMENT: (1) JOB ID: [id number] [employer]- All Rights Reserved Reading location - IP/workstation name: [email or web address]
== END ==
LOC: WI 15:01
PROVIDERS: ATTEND Internal Medicine
DX: Z12.31 Encounter for screening mammogram for malignant neoplasm of breast (principal)
CPT/HCPCS: 77063; 77067